=== PATIENT | female | born 1985 | race Caucasian/White ===

== ENCOUNTER 2025-08-17 20:21 | Emergency (ER) | payer MEDICAID, OTHER ==
[~2025-08-17 20:21] MED LIST: Iopamidol-370 76% 500 ML MDV (1 ML CHARGE) ONE
[2025-08-17 21:41] LABS: #Basophils 0.03 10x3/uL (0.0-0.2); #Eosinophils 0.11 10x3/uL (0.0-0.7); #Monocytes 0.60 10x3/uL (0.11-0.59); #Neutrophils 3.63 10x3/uL (1.40-6.50); %Basophils 0.4 % (0.0-1.0); %Eosinophils 1.5 % (0.0-10.0); %Lymphocytes 37.4 % (21.0-51.0); %Monocytes 8.4 % (0.0-10.0); %Neutrophils 51.2 % (42.0-75.0); Hematocrit 34.0 % (36.0-47.0); Hemoglobin 11.4 g/dL (12.0-16.0); Mean Corpuscular Hemoglobin 30.2 pg (27.0-31.0); Mean Corpuscular Volume 89.9 fL (78.0-98.0); Platelet Count 305 10x3/uL (130-400); Red Blood Cell (RBC) Count 3.78 mill/uL (4.20-5.40); White Blood Cell (WBC) Count 7.11 10x3/uL (4.8-10.8)
[2025-08-17 21:54] LABS: ALT (SGPT) 15 U/L (Less than 34); AST (SGOT) 19 U/L (11-34); Albumin 4.1 g/dL (3.1-4.5); Alkaline Phosphatase 56 U/L (40-110); Anion Gap 12 mmol/L (10-20); BUN (Urea Nitrogen) 9 mg/dL (7.0-18.7); Bilirubin, Total 0.2 mg/dL (0.3-1.2); Calc. Creatinine Clearance 0 mL/min (70-130); Calcium 9.1 mg/dL (7.8-10.44); Carbon Dioxide 23 mmol/L (22-29); Chloride 105 mmol/L (98-107); Globulin 3.9 g/dL (2.4-3.5); Glucose 85 mg/dL (70-105); Potassium 4.1 mmol/L (3.5-5.1); Sodium 136 mmol/L (136-145)
[2025-08-17] MEDS ORDERED: Ketorolac Tromethamine 30 MG (1 mL) VIAL ONE (22:13)
[2025-08-17 22:50] LABS: BHCG - Serum Negative (NEGATIVE); Pregs Control Background? CLEAR/WHITE (CLR/WHITE); Pregs Control Bar Appear? YES (CONTROL BAR)
[2025-08-17 22:57] LABS: CK (CPK) 58 U/L (29-168); Lipase 20 U/L (8-78); Magnesium 1.8 mg/dL (1.6-2.6)
[2025-08-18] MEDS ORDERED: Ondansetron PF 4 MG/2 ML Vial ONE (00:14)
[2025-08-18] MEDS ORDERED: Mag-Al 1200 mg/1200 mg/30 ML UDCUP ONE (00:15)
[2025-08-18] MEDS ORDERED: Lidocaine Viscous Sol 2% 15 ml UD Cup ONE (00:15)
[2025-08-18] MEDS ORDERED: Famotidine/PF 20 mg/2ml Vial ONE (00:15)
== END 2025-08-18 01:58 | disposition home or self-care (01) ==
LOC: ERS 20:21
DX: K20.90 Esophagitis, unspecified without bleeding (principal); E11.9 Type 2 diabetes mellitus without complications
CPT/HCPCS: 36415; 71045; 71275; 80053; 82550; 83690; 83735; 83880; 84484; 84703; 85025; 93005; 96374; 96375; J1308; J1885; J2405; J3010; Q9967